=== PATIENT | male | born 1985 | race Hispanic/Latino ===

== ENCOUNTER → 2016-08-03 | Outpatient (CLI) | payer OTHER ==
--- NOTE | 2016-08-05 06:09 | SLEEPCENT ---
DATE OF PROCEDURE: 08/03/2016 ORDERED BY: Comfort Valadez. Nocturnal polysomnography was performed due to concern for the obstructive sleep apnea syndrome in this patient with a history of excessive somnolence and nonrestorative sleep. 8 hours and 40 minutes of data were reviewed. Of these, 451 minutes of sleep were identified. Sleep latency was mildly prolonged at 35 minutes Rapid eye movement (REM) latency was normal at 84 minutes. Sleep architecture was fairly good with 5 REM periods appreciated. Overall sleep efficiency was 87.8%. The patient's EKG showed a sinus rhythm with an average heart rate of 60 beats per minute. EEG showed normal wave forms for awake and sleep. There were only 5 respiratory events identified of 10 seconds in duration or greater for an apnea-hypopnea index well within normal limits of 0.7. Significant snoring was noted, however, and arousals from respiratory events when arousals from snoring were included occurred 6.6 times per hour. There was some limb activity appreciated by arousals from limb events were few. Oxygen saturation remained 90% plus for the entire study. IMPRESSION: Normal nocturnal polysomnography with snoring. RECOMMENDATION: Given the snore related arousal index of 6.6 times per hour, interventions to optimize upper airway tone and address the patient's snoring problems should improve the quality of sleep.
== END | disposition home or self-care (01) ==
LOC: M SLEEP 19:17
PROVIDERS: ATTEND Nurse Practitioner Adult Health
DX: R06.83 Snoring (principal)